=== PATIENT | female | born 1955 | race Caucasian/White ===

== ENCOUNTER → 2016-12-23 | Outpatient (CLI) | payer OTHER ==
--- NOTE | 2016-12-23 11:38 | ECHOS ---
DATE OF SERVICE: 12/23/2016 AGE: 61Y SEX: F HT: 63 WT: ( ) lbs. Protocol Rico: X Others: Stress Echo Stage: II Dur. of Exercise: 3-1/2 minutes *Heart Rate Blood Pressure *Rest: 97 Rest: 144/72 * *Max. Achieved: 151 Maximum BP: 216/55 85% PMHR: 136 100% PMHR: 160 *METS: 4.5 INDICATIONS: Short of breath. MEDICATIONS: Baseline EKG shows sinus rhythm with poor R wave progression. Patient exercised on Rico protocol for a total of 3-1/2 minutes achieving 4.5 METs, 94% of predicted maximal heart rate without chest pain or diagnostic ST segment depression. The test was stopped secondary to shortness of breath. Baseline echo shows normal left ventricular size and systolic function with an ejection fraction of 55%. Anteroseptum appears hypokinetic suggestive of prior myocardial infarction. Postexercise, there is normal hyperdynamic response of all segments of myocardium except the anteroseptum which remains hypokinetic. CONCLUSION: 1. Very poor exercise tolerance. 2. Negative stress test by EKG criteria. 3. Abnormal stress echocardiogram showing hypokinesis involving the anteroseptal wall at rest. There are no exercise-induced wall motion abnormalities.
== END | disposition home or self-care (01) ==
LOC: RADNMMAIN 09:48
PROVIDERS: ATTEND Family Medicine
DX: R94.31 Abnormal electrocardiogram [ECG] [EKG] (principal)
CPT/HCPCS: 93017; 93350

== ENCOUNTER → 2017-01-14 | Outpatient (CLI) | payer OTHER ==
[2017-01-14 17:34] LABS: CH 31.1; CHCM 34.5; HCT 37.4 % (34.0-46.0); HDW 2.69; MCH 31.4 pg (25.0-35.0); MCHC 34.8 g/dL (31.0-37.0); MCV 90.4 fL (80.0-100.0); Mean Platelet Volume 6.7; RBC 4.13 m/uL (3.80-5.40); RDW 12.8 % (11.5-15.5); WBC 13.3 k/uL (3.8-10.6)
[2017-01-14 17:42] LABS: Anion Gap 13 mmol/L; Blood Urea Nitrogen 22 mg/dL (7-17); Carbon Dioxide 28 mmol/L (22-30); Chloride 101 mmol/L (98-107); Non-African American GFR(MDRD) >60 (>60 ml/min/1.73 sqM); Potassium 4.8 mmol/L (3.5-5.1); Sodium 142 mmol/L (137-145)
== END | disposition home or self-care (01) ==
LOC: LABPAT 17:07
PROVIDERS: ATTEND Internal Medicine Cardiovascular Disease
DX: Z01.812 Encounter for preprocedural laboratory examination (principal); R07.9 Chest pain, unspecified
CPT/HCPCS: 80051; 82565; 84520; 85027

== ENCOUNTER 2017-01-20 06:23 | Day surgery (SDC) | payer OTHER ==
[2017-01-15 16:15] VITALS: BMI 36.5
[~2017-01-20 06:23] MED LIST: ALPRAZolam 0.25 MG TAB PO PRN; ASPIRIN 325 MG TAB PO ONE; SODIUM CHLORIDE 0.9% 1,000 ML in EMPTY BAG 1 BAG IV ONE
[2017-01-20 07:08] VITALS: TEMP 97.8
[2017-01-20 07:17] LABS: Glucose,Whole Blood 377 mg/dL (75-99)
[2017-01-20] MEDS ORDERED: INSULIN LISPRO (humaLOG) 300 UNIT/3 ML VIAL SQ ONE ×4 (07:17→13:24)
[2017-01-20] MEDS ORDERED: SODIUM CHLORIDE 0.9% 1,000 ML IV ONE (08:27)
[2017-01-20] MEDS ORDERED: MIDAZOLAM 2 MG/2 ML VIAL IV ONE (08:40)
[2017-01-20] MEDS ORDERED: fentaNYL (PF) 50 MCG/ML 2 ML AMP IV ONE (08:41)
[2017-01-20] MEDS ORDERED: diphenhydrAMINE 50 MG/ML 1 ML VIAL IVP ONE (08:42)
[2017-01-20] MEDS ORDERED: LIDOCAINE 2% INJ 20 MG/ML SQ ONE (08:45)
[2017-01-20] MEDS ORDERED: IOHEXOL 350 MG/ML 100 ML BOTTLE INJ ONE (09:01)
[2017-01-20] MEDS ORDERED: RX INFO: IV CONTRAST WAS GIVEN 1 EACH MISC MISCELLANE PRN (09:06)
--- NOTE | 2017-01-20 09:14 | P.PCN ---
Date of Procedure: 01/20/17 Preoperative Diagnosis: Hypertension hypercholesterolemia and positive stress test Postoperative Diagnosis: Normal coronary arteries and normal LV function Procedure(s) Performed: Left heart catheterization with left ventriculography Description of Procedure: HISTORY: This is a 61-year-old female with history of hypertension and hypercholesterolemia who has been experiencing exertional shortness of breath. A stress echocardiogram was performed which was suggestive of fixed hypokinesis of the anterior wall. Patient was advised to have cardiac catheterization for definitive diagnosis. CONSENT:I have discussed the risks, benefits and alternative therapies for the above-mentioned procedure and for both sedation/analgesia as well as necessary blood product administration, if indicated, as they pertain to this patient. The patient has indicated understanding and acceptance of the risks and procedures discussed. PROCEDURE: Patient was brought to the lab in a fasting state. Patient was given some IV sedation. The right groin is infiltrated with lidocaine and right femoral artery was entered using Seldinger technique. A 6-Kyrgyz catheter was left in place and selective coronary arteriography and left ventriculography was performed. Patient tolerated the procedure well. Femoral angiogram was performed and Angio-Seal was applied for hemostasis. No immediate complications were noted and patient was transferred to [facility] in a stable condition HEMODYNAMICS: The aortic pressure was 150/70. Left ankle end-diastolic pressures of 15-20. SELECTIVE CORONARY ARTERIOGRAPHY: LEFT MAIN: Normal length and patent THE LEFT ANTERIOR DESCENDING CORONARY ARTERY:. Good caliber vessel reaching the apex and gives rise to good-sized diagonal branch. The LAD and the diagonal branch are free of any significant occlusive disease. THE LEFT CIRCUMFLEX AND IS CORONARY ARTERY: This is a moderate caliber vessel giving rise to a tubal segment and small PLV branches. Nondominant in distribution ,free of any occlusive disease. THE RIGHT CORONARY ARTERY:: Dominant vessel giving rise to PDA and PLV. Free of any significant occlusive disease LEFT VENTRICULOGRAPHY:. This was performed with an ejection because the power injection was not functioning. This is suboptimal study but LV function appear to be preserved. FINAL IMPRESSION: Normal coronary arteries. Normal LV function. Mildly elevated end-diastolic pressure. PLAN: Maximum medical therapy and risk factor modification PROGNOSIS: Fair
[2017-01-20] MEDS ORDERED: SODIUM CHLORIDE 0.9% 1,000 ML IV SCH (09:15)
[2017-01-20 09:19] LABS: Glucose,Whole Blood 359 mg/dL (75-99)
[2017-01-20 11:32] VITALS: PULSE 96
[2017-01-20 13:16] VITALS: BP 160/77
[2017-01-20 13:23] LABS: Glucose,Whole Blood 361 mg/dL (75-99)
== END 2017-01-20 14:16 | disposition home or self-care (01) ==
LOC: CATHCVL 06:23
PROVIDERS: ATTEND Internal Medicine Cardiovascular Disease
DX: R94.39 Abnormal result of other cardiovascular function study (principal); R06.00 Dyspnea, unspecified; R06.02 Shortness of breath; I10 Essential (primary) hypertension; E11.9 Type 2 diabetes mellitus without complications; E78.2 Mixed hyperlipidemia; E78.00 Pure hypercholesterolemia, unspecified; J44.9 Chronic obstructive pulmonary disease, unspecified; Z82.49 Family history of ischemic heart disease and other diseases of the circulatory system; Z79.84 Long term (current) use of oral hypoglycemic drugs; Z79.51 Long term (current) use of inhaled steroids; Z79.52 Long term (current) use of systemic steroids; Z79.899 Other long term (current) drug therapy; Z91.09 Other allergy status, other than to drugs and biological substances; Z87.891 Personal history of nicotine dependence
CPT/HCPCS: 93458; C1760; C1894; C1769; J2001; J2250; J1200; Q9967; J3010

== ENCOUNTER → 2017-02-12 | Outpatient (CLI) | payer OTHER | END | disposition home or self-care (01) | LOC: LABWHC1 16:33 | PROVIDERS: ATTEND Orthopaedic Surgery | DX: Z01.812 Encounter for preprocedural laboratory examination (principal) | CPT/HCPCS: 87070 ==

== ENCOUNTER → 2017-03-10 | Outpatient (CLI) | payer OTHER | END | disposition home or self-care (01) | LOC: CPPFTMAIN 13:21 | PROVIDERS: ATTEND Internal Medicine Cardiovascular Disease | DX: R06.02 Shortness of breath (principal) | CPT/HCPCS: 94060; 94726; 94729 ==

== ENCOUNTER 2017-03-30 08:00 | Inpatient (IN) | payer OTHER ==
[2017-03-23 14:38] VITALS: BMI 35.8
--- NOTE | 2017-03-29 20:24 | HP ---
DATE OF ADMISSION: 03/30/2017 Jeanette Weaver is a 61-year-old patient seen with progressive right knee pain. After having treatment options discussed, she elected to proceed with right total knee arthroplasty. Consent regarding the procedure was obtained. Medical clearance was provided by Dr. Rodríguez. Her past medical history is [id number] diabetes, hypertension, hyperlipidemia, osteoarthritis. PAST SURGICAL HISTORY: Cholecystectomy, hysterectomy, right knee arthroscopy, right shoulder arthroscopy. DAILY MEDICATIONS: Gabapentin, losartan, metformin, simvastatin, Symbicort, tramadol. ALLERGIES: IODINE, MEDICAL TAPE. SOCIAL HISTORY: Patient denies tobacco use. PHYSICAL EVALUATION OF THE RIGHT KNEE: Her range of motion is 0 to 120 degrees. There is tenderness along the medial and lateral joint line. She has a positive medial Maykel's. There is a positive lateral Maykel's. Crepitus along the medial and patellofemoral compartments with range of motion. Pain with patellofemoral compression. Ligaments stable. Hip rotation without pain. Distal neurovascular exam intact. Radiographs of the right knee revealed severe medial, moderate patellofemoral compartment osteoarthritis. IMPRESSION: Right knee osteoarthritis. PLAN: Right total knee arthroplasty.
[~2017-03-30 08:00] MED LIST changes: +ACETAMINOPHEN TAB 500 MG TAB PO ONE; -ALPRAZolam 0.25 MG TAB PO PRN; -ASPIRIN 325 MG TAB PO ONE; +DEXAMETHASONE SOD PHOSPHATE 10 MG/ML 1 ML VIAL IV ONE; +MELOXICAM 7.5 MG TAB PO ONE; +MIDAZOLAM 2 MG/2 ML VIAL IV PRN; +ONDANSETRON 4 MG/2 ML VIAL IVP ONE; -SODIUM CHLORIDE 0.9% 1,000 ML in EMPTY BAG 1 BAG IV ONE; +TRANEXAMIC ACID 1,000 MG in SODIUM CHLORIDE 0.9% 100 ML IVPB ONE; +ceFAZolin 2 GM in SODIUM CHLORIDE 0.9% 100 ML IVPB ONE
[2017-03-30 08:44] LABS: Glucose,Whole Blood 158 mg/dL (75-99)
[2017-03-30] MEDS: LACTATED RINGERS 1,000 ML IV SCH ×3 (08:52→23:18)
[2017-03-30] MEDS ORDERED: LIDOCAINE 1% 20 ML VIAL (10MG/ML) FOR IV START INTRADERMA ONE (08:54)
[2017-03-30] MEDS ORDERED: MIDAZOLAM 2 MG/2 ML VIAL IVP ONE ×2 (09:20→10:40)
[2017-03-30] MEDS ORDERED: fentaNYL (PF) 50 MCG/ML 2 ML AMP IVP ONE ×2 (09:20→10:40)
[2017-03-30] MEDS ORDERED: ROPIVACAINE 246.25 MG, EPINEPHrine 0.5 MG, KETOROLAC 30 MG, cloNIDine HCL/PF 80 MCG, WA... MISCELLANE ONE ×5 (09:52)
[2017-03-30] MEDS ORDERED: PROPOFOL 10 MG/ML 20 ML VIAL IV ONE (10:41)
[2017-03-30] MEDS ORDERED: PHENYLEPHRINE-0.9% NACL SYG 1 MG/10 ML SYRINGE ONE (10:41)
[2017-03-30] MEDS ORDERED: LIDOCAINE 1% INJ 10MG/ML (20 ML MDV) ONE (10:41)
[2017-03-30] MEDS ORDERED: ceFAZolin 3,000 MG in SODIUM CHLORIDE 0.9% IRRIGATIO 3,000 ML IRRIGATION ONE (11:25)
[2017-03-30] MEDS ORDERED: hydrOXYzine PAMOATE 25 MG CAP PO PRN (12:41)
[2017-03-30] MEDS ORDERED: NALOXONE 0.4 MG/ML 1 ML VIAL IV PRN (12:41)
[2017-03-30] MEDS ORDERED: ONDANSETRON 4 MG/2 ML VIAL IVP PRN (12:41)
[2017-03-30] MEDS ORDERED: HYDROmorphone 1 MG/ML 1 ML SYRINGE IVP PRN ×3 (12:41)
--- NOTE | 2017-03-30 12:41 | P.OP ---
Date of Procedure: 03/30/17 Preoperative Diagnosis: Right knee osteoarthritis Postoperative Diagnosis: Right knee osteoarthritis Procedure(s) Performed: Right total knee arthroplasty Implants: 1. Radha persona size 8 narrow cruciate retaining cemented femoral component 2. Radha persona size D cemented tibial component 3. Radha persona 10 mm medial congruent polyethylene tibial insert 4. Radha persona 35 mm all polyethylene cemented patella Anesthesia: regional (Adductor canal block), local, spinal Surgeon: Jak Rose Deck Engineer #1: Alfredo Bahena Estimated Blood Loss (ml): 125 Pathology: other (Bone) Condition: stable Disposition: PACU Indications for Procedure: 61-year-old patient seen with symptomatic right knee osteoarthritis. After treatment options were discussed she elected to proceed with right total knee arthroplasty. Operative Findings: See description of procedure Description of Procedure: Patient was taken to the operative suite after having an adductor canal block performed by the department of anesthesia. Patient underwent a spinal anesthetic by the department of anesthesia. Patient was given preoperative IV intake antibiotics and TXA. A well-padded tourniquet was placed about the right lower extremity. The lower extremity was then prepped and draped in the normal sterile orthopedic fashion. A standard anterior incision was made sharply through skin. Dissection was taken down through the subcutaneous soft tissues down to the extensor mechanism. A medial arthrotomy was performed, patella was everted and knee was flexed. There was advanced osteoarthritis noted. A proximal tibial cutting guide was positioned. Proximal tibial cut was made. A distal intramedullary femoral cutting guide was positioned, distal femoral cut made. We placed the appropriate sizing guide and selected the appropriate size. A distal 4-in-1 femoral cutting block was positioned, distal femoral cuts were made. At this point the tourniquet was insufflated to 350. We now placed a trial femoral component into position, along with an appropriate size tibial tray and insert. We now took the knee through range of motion and had full extension good flexion and good overall soft tissue balance noted. The patella was everted and a flush cut made with patellar quad tendon. We templated the patella, appropriate drill holes were made. An appropriate trial patella was positioned, knee was taken through full range of motion with the patella tracking very nicely. The trial patella was removed. Drill holes were made through the femoral component. All trial components were removed after marking off the appropriate rotation of the tibia. Retractors were now positioned along the proximal tibia. An appropriate keel punch was made with the appropriate size tibial guide. At this point appropriate size implants were chosen and opened. The joint was irrigated copiously with pulse lavage mechanical irrigation. Bipolar cautery was utilized on the posterior hip capsule. The posterior hip capsule was infiltrated with local analgesic. We mixed antibiotic methylmethacrylate. Once the methyl methacrylate was ready, the tibial component was cemented into place removing any excess methylmethacrylate. The femoral component was cemented into place removing the removing any excess methylmethacrylate. We then inserted the appropriate size polyethylene tibial insert. We made sure that it was locked into position. We took the knee into full extension, and then back in a flexion making sure we had removed any excess methylmethacrylate. The patellar component was then cemented down and secured with clamp. Excess methylmethacrylate removed. We kept the knee in full extension, patellar clamp in position until methylmethacrylate had hardened. Once it had hardened the patellar clamp was removed. The knee was taken through full range of motion. The patella tracked nicely. There was good soft tissue balancing. The tourniquet was now released. Additional hemostasis was achieved via electrocautery. A second gram of TXA was given. The wound was irrigated with pulse lavage mechanical irrigation. The superficial soft tissues were infiltrated local analgesic. The extensor mechanism was repaired with Vicryl. We checked the repair with range of motion and it was stable. The subcutaneous soft tissues were repaired with Vicryl in layers. The skin was approximated with pernio/Dermabond. Sterile dressings were applied followed by loose web roll and Duane bandage. The patient was transferred to a bed, and taken to recovery in stable and satisfactory condition. Jose BENSON assisted with the procedure.
[2017-03-30] MEDS ORDERED: ROPIVACAINE 1,100 MG, SODIUM CHLORIDE 0.9% 330 ML MISCELLANE PRN ×2 (12:54)
[2017-03-30] MEDS: HYDROmorphone 1 MG/ML 1 ML SYRINGE IVP PRN ×4 (12:56→14:10)
--- NOTE | 2017-03-30 13:14 | P.ONQ ---
Anesthesiology Proc Note - PNB - Peripheral Nerve Block Performed Right Adductor Canal Infusion Time Out Performed: Yes Indication: Acute Post-Operative Pain, Analgesia Sedation Type: Sedate with meaningful contact maintained Preparation: Sterile Prep Position: Supine Catheter Depth at Skin (cm): 6 Catheter: Indwelling Needle Types: Other (see comment) (Matthieu) Needle Size: 100mm (4") Needle Gauge: 18 Technique: Ultrasound Injectate: 0.5% Ropivacaine (see comment for volume) (20) Blood Aspirated: Yes Pain Paresthesia on Injection Noted: No Resistance on Injection: Normal Events: Other (see comment) (Withdrew Cath ~0.5 cm, neg asp blood, Inj rop 3cc with good spread, neg asp blood.)
--- NOTE | 2017-03-30 13:26 | XR ---
EXAMINATION TYPE: XR knee limited RT DATE OF EXAM: 03/30/2017 COMPARISON: NONE TECHNIQUE: Two views submitted HISTORY: Post op FINDINGS: There is a prosthetic knee in near anatomic alignment. There is soft tissue edema and emphysema. Hernandez rgical krista noted. Tubing overlying the femur correlate clinically. IMPRESSION: 1. Postoperative change. Appears in near-anatomic alignment
[2017-03-30 13:53] LABS: Glucose,Whole Blood 202 mg/dL (75-99)
[2017-03-30] MEDS ORDERED: INSULIN LISPRO (humaLOG) 300 UNIT/3 ML VIAL SQ ONE (13:56)
[2017-03-30] MEDS ORDERED: LACTATED RINGERS 1,000 ML IV ONE ×2 (14:11)
[2017-03-30] MEDS: traMADol 50 MG TAB PO SCH ×3 (15:36→21:23)
[2017-03-30 17:04] LABS: Glucose,Whole Blood 249 mg/dL (75-99)
[2017-03-30] MEDS: HYDROcodone/APAP 7.5-325MG 1 EACH TAB PO PRN (17:08)
[2017-03-30] MEDS ORDERED: diphenhydrAMINE 25 MG CAP PO PRN (17:17)
[2017-03-30] MEDS ORDERED: ALBUTEROL NEBULIZED 2.5 MG/3 ML INHALATION PRN (17:17)
[2017-03-30] MEDS: INSULIN LISPRO (humaLOG) 300 UNIT/3 ML VIAL SQ SCH ×2 (18:02→21:25)
[2017-03-30 20:07] LABS: Glucose,Whole Blood 237 mg/dL (75-99)
[2017-03-30] MEDS: ceFAZolin 2 GM in SODIUM CHLORIDE 0.9% 100 ML IVPB SCH (21:21)
[2017-03-30] MEDS: SENNOSIDES-DOCUSATE SODIUM 1 EACH TAB PO SCH (21:23)
[2017-03-30] MEDS: GABAPENTIN 400 MG CAP PO SCH (21:23)
[2017-03-30] MEDS: MONTELUKAST 10 MG TAB PO SCH (21:23)
[2017-03-30] MEDS: PANTOPRAZOLE 40 MG TABLET PO SCH (21:24)
[2017-03-30] MEDS: ATORVASTATIN 20 MG TAB PO SCH (21:24)
[2017-03-30] MEDS ORDERED: TEMAZEPAM 15 MG CAP PO PRN (22:00)
[2017-03-31] MEDS: LACTATED RINGERS 1,000 ML IV SCH ×3 (01:43→19:51)
[2017-03-31] MEDS: ceFAZolin 2 GM in SODIUM CHLORIDE 0.9% 100 ML IVPB SCH (03:06)
[2017-03-31] MEDS: HYDROcodone/APAP 7.5-325MG 1 EACH TAB PO PRN ×3 (03:09→19:58)
[2017-03-31 07:00] LABS: Glucose,Whole Blood 145 mg/dL (75-99)
[2017-03-31 07:29] LABS: Basophils # (A) 0.1 k/uL (0-0.2); Basophils % (A) 0 %; CH 31.3; CHCM 33.8; Eosinophils # (A) 0.1 k/uL (0-0.7); Eosinophils % (A) 0 %; HCT 35.5 % (34.0-46.0); HDW 2.53; Luc # (Auto) 0.29; Luc % (Auto) 2; Lymphocytes # (A) 4.1 k/uL (1.0-4.8); Lymphocytes % (A) 24 %; MCH 31.5 pg (25.0-35.0); MCHC 33.9 g/dL (31.0-37.0); MCV 92.8 fL (80.0-100.0); Mean Platelet Volume 6.7; Monocytes # (A) 0.7 k/uL (0-1.0); Monocytes % (A) 4 %; Neutrophils # (A) 11.8 k/uL (1.3-7.7); Neutrophils % (A) 70 %; RBC 3.83 m/uL (3.80-5.40); RDW 13.2 % (11.5-15.5); WBC 16.9 k/uL (3.8-10.6); WBC (Perox) 17.11
[2017-03-31] MEDS: INSULIN LISPRO (humaLOG) 300 UNIT/3 ML VIAL SQ SCH ×4 (07:43→21:21)
[2017-03-31] MEDS: ENOXAPARIN 30 MG/0.3 ML SYRINGE SQ SCH ×2 (07:44→21:17)
[2017-03-31] MEDS: LINAGLIPTIN 5 MG TABLET PO SCH (07:44)
[2017-03-31] MEDS: GABAPENTIN 400 MG CAP PO SCH ×3 (07:44→21:17)
[2017-03-31] MEDS: LOSARTAN 25 MG TAB PO SCH (07:45)
[2017-03-31] MEDS: MELOXICAM 7.5 MG TAB PO SCH (07:45)
[2017-03-31] MEDS: METOPROLOL SUCCINATE (ER) 25 MG TAB.ER.24H PO SCH (07:46)
[2017-03-31] MEDS: traMADol 50 MG TAB PO SCH ×4 (07:51→23:33)
[2017-03-31] MEDS: SYMBICORT 160-4.5 MCG INHALER INHALATION SCH (07:57)
[2017-03-31 08:34] LABS: Hemoglobin A1C 8.3 % (4.2-6.1)
[2017-03-31] MEDS ORDERED: FAMOTIDINE 20 MG TAB PO SCH (09:00)
--- NOTE | 2017-03-31 10:11 | P.PN ---
Subjective Principal diagnosis: Status post right total knee arthroplasty Patient is seen today resting in her hospital chair, she appears to be in no acute distress. Her pain is controlled at this time. She's ambulated with therapy, urinary catheters been discontinued. She denies any headaches, lightheadedness, chest pain or shortness of breath. Objective - Vital Signs Vital signs: Vital Signs Temp 97.2 F L 03/31/17 07:00 Pulse 92 03/31/17 07:00 Resp 18 03/31/17 07:00 BP 137/84 03/31/17 07:00 Pulse Ox 96 03/31/17 07:00 Intake & Output 03/30/17 03/31/17 03/31/17 18:59 06:59 18:59 Intake Total 1051 800 Output Total 925 1350 Balance 126 -550 Weight 92.533 kg Intake: IV 1051 800 Lactated Ringers 1,000 ml 800 @ 100 mls/hr IV .Q10H LAURA Rx#:[id number] Output: Urine 800 1350 Estimated Blood Loss 125 Other: Voiding Method Indwelling Catheter Indwelling Catheter Indwelling Catheter - Exam Right lower extremity: Incision is clean, dry, and intact. Minimal ecchymosis present on the medial and lateral aspects of the distal incision, krista are in good position. Calf is soft, no tenderness with palpation. Plantar flexion, dorsiflexion, EHL, FHL are intact. Sensory exam to light touch throughout the extremity is intact, dorsal pedis pulses 2+. - Labs CBC & Chem 7: 03/31/17 06:47 Labs: Abnormal Lab Results - Last 24 Hours (Table) 03/30/17 03/30/17 03/30/17 Range/Units 13:52 17:02 20:05 WBC (3.8-10.6) k/uL Neutrophils # (1.3-7.7) k/uL POC Glucose (mg/dL) 202 H 249 H 237 H (75-99) mg/dL Hemoglobin A1c (4.2-6.1) % 03/31/17 03/31/17 03/31/17 Range/Units 06:47 06:47 06:58 WBC 16.9 H (3.8-10.6) k/uL Neutrophils # 11.8 H (1.3-7.7) k/uL POC Glucose (mg/dL) 145 H (75-99) mg/dL Hemoglobin A1c 8.3 H (4.2-6.1) % Assessment and Plan Plan: Assessment: 1. Postop day #1 status post right total knee arthroplasty Plan: 1. Pain control, continue use of oral medication 2. GI and DVT prophylaxis, continue use of Lovenox during inpatient stay, we' ll discharge home on aspirin 325 mg twice a day 3. Encourage incentive spirometer 4. Continue work with physical therapy 5. Daily dressing changes/ice the extremity 6. Medical recommendations 7. Discharge planning: Patient will be likely discharged home either today or tomorrow Time with Patient: Less than 30
--- NOTE | 2017-03-31 10:14 | P.DS ---
Providers Date of admission: 03/30/17 08:00 Expected date of discharge: 04/01/17 Attending physician: Jak Rose Consults: 03/30/17 12:41 Consult Physician Routine Consulting Provider: Suze Paula Consult Reason/Comments: Medical management Do you want consulting provider notified?: Yes Primary care physician: Verna Jason Hospital Course: Date of admission: 03/30/2017 Date of discharge: 04/01/2017 Admission diagnosis: Status post right total knee arthroplasty Discharge diagnosis: Same Attending physician: Dr. Rose Surgical procedures: Right total knee arthroplasty Brief history: Patient is a 7-year-old female with a history of progressive primary right knee osteoarthritis. At this point patient has failed conservative treatment measures and has opted to proceed with a elective right total knee arthroplasty. Hospital course: Details of patient's surgery can be found in operative report. Patient tolerated the procedure well and was subsequently transported to orthopedic floor. Patient's orthopeidc and medical care was provided daily. Patient had daily laboratory tests performed for evaluation of overall blood counts. Patient had daily physical therapy to include strengthening range of motion as well as education with walker ambulation. Patient had daily CPM usage as part of their physical therapy program. Patient was treated with Lovenox for their postoperative DVT prophylaxis during their inpatient stay. Patient was noted to have a relatively uneventful postoperative course. Patient reported satisfactory pain control with oral pain medications by postoperative day 0. Patient showed satisfactory progress with physical therapy. Patient moved steadily through the program and had no difficulty meeting the goals by postoperative day 2. Given patient's otherwise satisfactory course and having met physical therapy goals, plan is to discharge patient home on postoperative day 2. Discharge condition/disposition: Patient will be discharged home in stable condition. Discharge medications: Instructions are given on resumption of patient's normal daily medications per primary care recommendation, in addition patient will be prescribed Kent 7.5 mg/325 mg, Colace 100 mg, aspirin draining 25 mg. Discharge instructions: 1. Wound care and infection precautions, keep incision dry and covered while showering, no lotions, creams, moisturizers. No soaking, tubs, pools, hottubs. Do not scrub over the incision. 2. Weight-bear as tolerated with walker / cane until follow-up. 3. Ice and elevate when necessary. Do not exceed 20 minutes per hour with ice pack. 4. Utilize compression sleeve until seen at first follow up appointment. 5. Visiting nursing care. 6. Home physical therapy [ncluding home CPM. 7. Pain meds and anticoagulants per prescription. 8. Pain medication has potential to cause constipation. Increase oral fluid and fiber intake. Contact primary care provider if you have not had a bowel movement within 48 hours after discharge 9. No anti-inflammatory medication until discussed at first post operative visit, this including Motrin, Aleve, Mobic, Diclofenac. 10. Follow up in office at 2 weeks postop with Jose Bahena PA-C 11. Follow up with your primary care doctor 7-10 days after discharge. 12. Contact [facility] with any questions, . Procedures: Right total knee arthroplasty Patient Condition at Discharge: Good Plan - Discharge Summary New Discharge Prescriptions: New Aspirin 325 mg PO BID #60 tab Docusate [Colace] 100 mg PO DAILY #30 capsule HYDROcodone/APAP 7.5-325MG [Kent 7.5] 1 - 2 each PO Q6HR PRN #60 tab PRN Reason: Pain traMADol HCL [Ultram] 50 mg PO Q6HR PRN #1 tab PRN Reason: Pain Continue Budesonide/Formoterol Fumarate [Symbicort 160-4.5 Mcg Inhaler] 2 puff INHALATION RT-DAILY buPROPion HCL [Wellbutrin XL] 300 mg PO DAILY Simvastatin [Zocor] 40 mg PO HS Montelukast [Singulair] 10 mg PO HS Gabapentin 800 mg PO TID Losartan Potassium [Cozaar] 25 mg PO DAILY Albuterol Inhaler [Ventolin Hfa Inhaler] 1 - 2 puff INHALATION RT-DAILY PRN PRN Reason: Shortness Of Breath Metoprolol Succinate [Toprol XL] 25 mg PO DAILY sitaGLIPtin [Januvia] 100 mg PO DAILY Omeprazole [PriLOSEC] 20 mg PO HS diphenhydrAMINE [Benadryl] 25 mg PO DAILY Discharge Medication List Albuterol Inhaler [Ventolin Hfa Inhaler] 1 - 2 puff INHALATION RT-DAILY PRN 12/25 [History] Budesonide/Formoterol Fumarate [Symbicort 160-4.5 Mcg Inhaler] 2 puff INHALATION RT-DAILY 05/14/16 [History] Gabapentin 800 mg PO TID 05/14/16 [History] Losartan Potassium [Cozaar] 25 mg PO DAILY 05/14/16 [History] Montelukast [Singulair] 10 mg PO HS 05/14/16 [History] Simvastatin [Zocor] 40 mg PO HS 05/14/16 [History] buPROPion HCL [Wellbutrin XL] 300 mg PO DAILY 05/14/16 [History] Metoprolol Succinate [Toprol XL] 25 mg PO DAILY 01/15/17 [History] sitaGLIPtin [Januvia] 100 mg PO DAILY 01/15/17 [History] Omeprazole [PriLOSEC] 20 mg PO HS 01/20/17 [History] diphenhydrAMINE [Benadryl] 25 mg PO DAILY 01/20/17 [History] Aspirin 325 mg PO BID #60 tab 03/31/17 [Rx] Docusate [Colace] 100 mg PO DAILY #30 capsule 03/31/17 [Rx] HYDROcodone/APAP 7.5-325MG [Kent 7.5] 1 - 2 each PO Q6HR PRN #60 tab 03/31/17 [ Rx] traMADol HCL [Ultram] 50 mg PO Q6HR PRN #1 tab 03/31/17 [Rx] Follow up Appointment(s)/Referral(s): Verna Jason DO [Primary Care Provider] - 2 Weeks (Office closed. Patient to call and schedule follow up appointment.) [facility], [NON-STAFF] - 1 Week Alfredo Bahena PAC [PHYSICIAN GRAINING OPERATOR] - 04/15/17 2:10 pm Patient Instructions/Handouts: Knee Replacement (DC) Activity/Diet/Wound Care/Special Instructions: CPM - [facility] to contact you regarding delivery of CPM - [phone] Walker - has at home Orthopedic Discharge Instructions: 1. Wound care and infection precautions, keep incision dry and covered while showering, no lotions, creams, moisturizers. No soaking, pools, hot tubs. Do not scrub over incision. 2. Weight-bear as tolerated with walker / cane until follow-up. 3. Ice and elevate when necessary. Do not exceed 20 minutes per hour with ice pack. 4. Utilize compression sleeve until seen at first follow up appointment. 5. Visiting nursing care. 6. Home physical therapy including home CPM. 7. Pain meds and anticoagulants per prescription. 8. Pain medication has potential to cause constipation. Increase oral fluid and fiber intake. Contact primary care provider if you have not had a bowel movement within 48 hours after discharge. 9. No anti-inflammatory medication until discussed at first post operative visit, this including Motrin, Aleve, Mobic, Diclofenac. 10. Follow up in office at 2 weeks postop with Jose Bahena PA-C 11. Follow up with your primary care doctor 7-10 days after discharge. 12. Contact [facility] with any questions, . Diet: Consistent carb Accu-Cheks before meals and at bedtime, maintain log and take to follow-up visit with PCP for further recommendations Discharge Disposition: HOME WITH HOME HEALTH SERVICES
[2017-03-31] MEDS: buPROPion XL 300 MG TAB.ER.24H PO SCH (10:54)
--- NOTE | 2017-03-31 11:04 | P.PN ---
Progress Note - Text 0652 anesthesia POD 1. Patient is status post right TKR under spinal anesthesia with a right adductor canal catheter placed for postoperative pain relief. With ropivacaine 0.2% running at 10 mL per hour the patient's vas is (3 , 5). Catheter site is intact clean and dry.
[2017-03-31 11:50] LABS: Glucose,Whole Blood 182 mg/dL (75-99)
--- NOTE | 2017-03-31 13:46 | P.CONS ---
History of Present Illness - Reason for Consult Consult date: 03/31/17 Medical management of DM, Asthma, HTN Requesting physician: Jak Rose - Chief Complaint Progressive right knee pain, status post right total knee arthroplasty - History of Present Illness This is a pleasant 61-year-old female admitted with progressive right knee pain , osteoarthritis ,status post right total knee arthroplasty in a patient with history of diabetes mellitus, asthma, hypertension, hyperlipidemia and multiple other medical issues. Continues to do well, ambulating with physical therapy, tolerating increase in exertion well. Pain controlled, passing flatus, no bowel movement. Scant Serosanguineous drainage from incisional site. Afebrile, WBC 16.9, suspect reactive, without signs or symptoms of infection. No fevers, chills, cough. Denies chest pain, palpitations or increased shortness of breath. Blood sugars better controlled. Vital Signs stable. Review of Systems Review of systems: HEENT: Denies headache or focal deficits. Denies any dizziness or lightheadedness. Respiratory: Denies any increased shortness of breath. Cardiac: Denies any chest pain, palpitations. GI: Denies any nausea, vomiting, or diarrhea. Denies any abdominal tenderness. : Denies any dysuria. Psychiatry: Denies any anxiety or depression. Past Medical History Past Medical History: Asthma, Diabetes Mellitus, Fibromyalgia, Hyperlipidemia, Hypertension Additional Past Medical History / Comment(s): hx migraines, varicose veins, IBS, History of Any Multi-Drug Resistant Organisms: None Reported Past Surgical History: Cholecystectomy, Hysterectomy, Orthopedic Surgery Additional Past Surgical History / Comment(s): colonoscopy. rt knee scope x 2 Past Anesthesia/Blood Transfusion Reactions: No Reported Reaction Additional Past Anesthesia/Blood Transfusion Reaction / Comm: "hard to wake up" Past Psychological History: No Psychological Hx Reported Smoking Status: Former smoker Additional Past Alcohol Use History / Comment(s): QUIT SMOKING 40 YRS AGO - Past Family History Mother Family Medical History: No Reported History Medications and Allergies Home Medications Medication Instructions Recorded Confirmed Type Albuterol Inhaler [Ventolin Hfa 1 - 2 puff INHALATION RT-DAILY PRN 05/14/16 History Inhaler] Budesonide/Formoterol Fumarate 2 puff INHALATION RT-DAILY 05/14/16 03/30/17 History [Symbicort 160-4.5 Mcg Inhaler] Gabapentin 800 mg PO TID 05/14/16 03/30/17 History Losartan Potassium [Cozaar] 25 mg PO DAILY 05/14/16 03/30/17 History Montelukast [Singulair] 10 mg PO HS 05/14/16 03/30/17 History Simvastatin [Zocor] 40 mg PO HS 05/14/16 03/30/17 History buPROPion HCL [Wellbutrin XL] 300 mg PO DAILY 05/14/16 03/30/17 History Metoprolol Succinate [Toprol XL] 25 mg PO DAILY 01/15/17 03/30/17 History sitaGLIPtin [Januvia] 100 mg PO DAILY 01/15/17 03/30/17 History Omeprazole [PriLOSEC] 20 mg PO HS 01/20/17 03/30/17 History diphenhydrAMINE [Benadryl] 25 mg PO DAILY 01/20/17 03/30/17 History Allergies Allergy/AdvReac Type Severity Reaction Status Date / Time adhesive tape Allergy skin Verified 03/30/17 14:17 sloughs off iodine Allergy Anaphylaxis Verified 03/30/17 14:17 Physical Exam Vitals: Vital Signs Temp Pulse Pulse Resp BP Pulse Ox 03/31/17 07:00 97.2 F L 92 18 137/84 96 03/31/17 01:39 98.6 F 95 17 125/72 98 03/31/17 00:00 16 03/30/17 20:00 16 03/30/17 19:14 97.6 F 99 16 137/64 94 L 03/30/17 16:40 103 H 160/80 03/30/17 16:25 101 H 152/77 03/30/17 16:10 101 H 154/120 03/30/17 15:55 102 H 162/101 03/30/17 15:40 105 H 181/111 03/30/17 15:25 101 H 161/86 03/30/17 15:10 102 H 151/95 03/30/17 14:55 101 H 153/85 03/30/17 14:40 97.0 F L 99 16 145/89 90 L 03/30/17 14:23 94 18 132/70 97 03/30/17 14:05 95 16 136/67 97 03/30/17 13:50 95 16 128/67 98 03/30/17 13:35 95 16 133/69 98 03/30/17 13:20 96 16 132/68 98 Intake and Output 03/30/17 03/31/17 03/31/17 22:59 06:59 14:59 Intake Total 800 Output Total 1350 1300 Balance -550 -1300 Intake: IV 800 Lactated Ringers 1,000 ml 800 @ 100 mls/hr IV .Q10H [facility] Rx#:[id number] Output: Urine 1350 1300 Uretheral (Zurita) 1000 Other: Voiding Method Indwelling Catheter Indwelling Catheter PHYSICAL EXAM: VITAL SIGNS: As above GENERAL: [Sitting up in a chair, no acute distress] HEENT: [Pupils equal conjunctiva normal. Oral mucosa moist, no conjunctival pallor] NECK: [Supple, no JVD] RESPIRATORY EFFORT:[normal] LUNGS: [Clear to auscultation, no wheezes rhonchi or crackles] CARDIOVASCULAR[ regular S1 and S2, no murmurs rubs or gallops, no edema] GI: [Abdomen soft, nontender, positive bowel sounds.] PSYCH: [Alert and oriented -3, mood and affect normal.] SKIN: Right knee dressing clean dry and intact, dorsal pedis pulses 2+ NEURO: No focal deficits, strength and sensation grossly intact Results CBC & Chem 7: 03/31/17 06:47 Labs: Abnormal Lab Results - Last 24 Hours (Table) 03/30/17 03/30/17 03/30/17 Range/Units 13:52 17:02 20:05 WBC (3.8-10.6) k/uL Neutrophils # (1.3-7.7) k/uL POC Glucose (mg/dL) 202 H 249 H 237 H (75-99) mg/dL Hemoglobin A1c (4.2-6.1) % 03/31/17 03/31/17 03/31/17 Range/Units 06:47 06:47 06:58 WBC 16.9 H (3.8-10.6) k/uL Neutrophils # 11.8 H (1.3-7.7) k/uL POC Glucose (mg/dL) 145 H (75-99) mg/dL Hemoglobin A1c 8.3 H (4.2-6.1) % 03/31/17 Range/Units 11:48 WBC (3.8-10.6) k/uL Neutrophils # (1.3-7.7) k/uL POC Glucose (mg/dL) 182 H (75-99) mg/dL Hemoglobin A1c (4.2-6.1) % Assessment and Plan Plan: 1. [ Right knee osteoarthritis, status post right total knee arthroplasty]. 2. [ Diabetes mellitus, hemoglobin A1c 8.3]. 3. [ Hypertension]. 4. [ Hyperlipidemia]. 5. [ Chronic intermittent Asthma, without acute exacerbation of. 6. Fibromyalgia]. 7. [ Remote history of nicotine abuse 8. Leukocytosis, suspect reactive ,without signs or symptoms of infection. Plan: Continue with current medication regime ,monitoring and symptomatic treatment. Pain management, anticoagulation as per orthopedics. Home meds have been resumed, vital signs stable]. Close monitoring of Accu-Cheks with sliding scale Discharge planning in progress for either today or tomorrow as per orthopedics. Patient to follow-up with primary care physician in one week, with repeat CBC OP. Further recommendations to follow up. Thank you Dr. Rose for allowing us to participate in the care of this pleasant lady. The impression and plan of care has been dictated as directed as a scribe. .: I performed a H&P examination of this patient and discussed the same with the dictator. I agree with the dictator's note. Any additional findings/opinions/ etc. will be noted.
[2017-03-31 16:57] LABS: Glucose,Whole Blood 181 mg/dL (75-99)
[2017-03-31 19:52] VITALS: RESP 16
[2017-03-31 20:15] LABS: Glucose,Whole Blood 272 mg/dL (75-99)
[2017-03-31] MEDS: MONTELUKAST 10 MG TAB PO SCH (21:17)
[2017-03-31] MEDS: PANTOPRAZOLE 40 MG TABLET PO SCH (21:17)
[2017-03-31] MEDS: ATORVASTATIN 20 MG TAB PO SCH (21:17)
[2017-03-31] MEDS: SENNOSIDES-DOCUSATE SODIUM 1 EACH TAB PO SCH (21:19)
[2017-04-01] MEDS: HYDROcodone/APAP 7.5-325MG 1 EACH TAB PO PRN ×2 (04:25→11:25)
[2017-04-01] MEDS: LACTATED RINGERS 1,000 ML IV SCH ×2 (05:46→11:05)
[2017-04-01 07:05] LABS: Glucose,Whole Blood 184 mg/dL (75-99)
[2017-04-01 07:38] VITALS: BP 140/67; TEMP 98.5
[2017-04-01] MEDS: buPROPion XL 300 MG TAB.ER.24H PO SCH (08:08)
[2017-04-01] MEDS: INSULIN LISPRO (humaLOG) 300 UNIT/3 ML VIAL SQ SCH ×2 (08:08→12:55)
[2017-04-01] MEDS: LOSARTAN 25 MG TAB PO SCH (08:09)
[2017-04-01] MEDS: ENOXAPARIN 30 MG/0.3 ML SYRINGE SQ SCH (08:09)
[2017-04-01] MEDS: GABAPENTIN 400 MG CAP PO SCH (08:09)
[2017-04-01] MEDS: LINAGLIPTIN 5 MG TABLET PO SCH (08:09)
[2017-04-01] MEDS: traMADol 50 MG TAB PO SCH ×2 (08:10→12:54)
[2017-04-01] MEDS: MELOXICAM 7.5 MG TAB PO SCH (08:10)
[2017-04-01] MEDS: METOPROLOL SUCCINATE (ER) 25 MG TAB.ER.24H PO SCH (08:10)
[2017-04-01] MEDS: SYMBICORT 160-4.5 MCG INHALER INHALATION SCH (09:22)
[2017-04-01 09:30] VITALS: PULSE 90
--- NOTE | 2017-04-01 10:46 | P.PN ---
Subjective Principal diagnosis: Status post right total knee arthroplasty Patient is seen today resting in her hospital chair, she appears to be in no acute distress. Her pain is controlled at this time. Patient did develop hypotension yesterday before discharge so she decided to stay through the night. She denies any headaches, lightheadedness, chest pain or shortness of breath. Objective - Vital Signs Vital signs: Vital Signs Temp 98.5 F 04/01/17 07:00 Pulse 90 04/01/17 09:22 Resp 16 04/01/17 08:00 BP 140/67 04/01/17 07:00 Pulse Ox 96 04/01/17 07:00 Intake & Output 03/31/17 04/01/17 04/01/17 18:59 06:59 18:59 Intake Total 1080 Output Total 1300 Balance -220 Intake: Oral 1080 Output: Urine 1300 Uretheral (Zurita) 1000 Other: Voiding Method Indwelling Catheter Toilet # Voids 1 # Bowel Movements 1 - Exam Right lower extremity: Incision is clean, dry, and intact. Minimal ecchymosis present on the medial and lateral aspects of the distal incision, krista are in good position. Calf is soft, no tenderness with palpation. Plantar flexion, dorsiflexion, EHL, FHL are intact. Sensory exam to light touch throughout the extremity is intact, dorsal pedis pulses 2+. - Labs CBC & Chem 7: 03/31/17 06:47 Labs: Abnormal Lab Results - Last 24 Hours (Table) 03/31/17 03/31/17 03/31/17 Range/Units 11:48 16:56 20:08 POC Glucose (mg/dL) 182 H 181 H 272 H (75-99) mg/dL 04/01/17 Range/Units 06:56 POC Glucose (mg/dL) 184 H (75-99) mg/dL Assessment and Plan Plan: Assessment: 1. Postop day #2 status post right total knee arthroplasty Plan: 1. Pain control, continue use of oral medication 2. GI and DVT prophylaxis, continue use of Lovenox during inpatient stay, we' ll discharge home on aspirin 325 mg twice a day 3. Encourage incentive spirometer 4. Continue work with physical therapy 5. Daily dressing changes/ice the extremity 6. Medical recommendations 7. Discharge planning: Patient will be discharged home today Time with Patient: Less than 30
[2017-04-01 11:14] LABS: Glucose,Whole Blood 188 mg/dL (75-99)
--- NOTE | 2017-04-01 15:48 | P.PN ---
Subjective Service 04/01/2017 Progress note being dictated for Dr. Guillen. Interval history: This is a pleasant 61-year-old female admitted with progressive right knee pain , osteoarthritis ,status post right total knee arthroplasty in a patient with history of diabetes mellitus, asthma, hypertension, hyperlipidemia and multiple other medical issues. Yesterday afternoon patient had isolated event of lightheadedness, hypotension while ambulating; returned to bed, symptoms as well as hypotension subsided. No further episodes of hypotension, or lightheadedness;ambulating and doing stairs with physical therapy, tolerating increase in exertion well. Pain controlled, positive bowel movement. No drainage from incisional site. Afebrile, No fevers, chills, cough. Denies chest pain, palpitations or increased shortness of breath. Vital Signs stable. Objective - Vital Signs Vital signs: Vital Signs Temp 98.5 F 04/01/17 07:00 Pulse 90 04/01/17 09:22 Resp 16 04/01/17 08:00 BP 140/67 04/01/17 07:00 Pulse Ox 96 04/01/17 07:00 Intake & Output 03/31/17 04/01/17 04/01/17 18:59 06:59 18:59 Intake Total 1080 Output Total 1300 Balance -220 Intake: Oral 1080 Output: Urine 1300 Uretheral (Zurita) 1000 Other: Voiding Method Indwelling Catheter Toilet # Voids 1 # Bowel Movements 1 - Exam VITAL SIGNS: As above GENERAL: [Sitting up in a chair no acute distress] HEENT: [Pupils equal conjunctiva normal. Oral mucosa moist, no conjunctival pallor] NECK: [Supple, no JVD] RESPIRATORY EFFORT:[normal] LUNGS: [Clear to auscultation, no wheezes rhonchi or crackles] CARDIOVASCULAR[ regular S1 and S2, no murmurs rubs or gallops, no edema] GI: [Abdomen soft, nontender, positive bowel sounds.] PSYCH: [Alert and oriented -3, mood and affect normal. NEURO: No focal deficits, strength and sensation grossly intact - Labs CBC & Chem 7: 03/31/17 06:47 Labs: Abnormal Lab Results - Last 24 Hours (Table) 03/31/17 03/31/17 04/01/17 Range/Units 16:56 20:08 06:56 POC Glucose (mg/dL) 181 H 272 H 184 H (75-99) mg/dL 04/01/17 Range/Units 11:12 POC Glucose (mg/dL) 188 H (75-99) mg/dL Assessment and Plan Plan: 1. [ Right knee osteoarthritis, status post right total knee arthroplasty]. 2. [ Diabetes mellitus, hemoglobin A1c 8.3]. 3. [ Hypertension]. 4. [ Hyperlipidemia]. 5. [ Chronic intermittent Asthma, without acute exacerbation of. 6. Fibromyalgia]. 7. [ Remote history of nicotine abuse 8. Leukocytosis, suspect reactive ,without signs or symptoms of infection. Plan: Continue with current medication regime ,monitoring and symptomatic treatment. Pain management, anticoagulation as per orthopedics. Discharge planning in progress as per orthopedics. Close monitoring of Accu-Cheks with Outpatient Accu-Cheks before meals and at bedtime, Patient to follow-up with primary care physician in one week, with repeat CBC OP. Further recommendations to follow up. Thank you Dr. Rose for allowing us to participate in the care of this pleasant lady. The impression and plan of care has been dictated as directed as a scribe. : I performed a H&P examination of this patient and discussed the same with the dictator. I agree with the dictator's note. Any additional findings/opinions/ etc. will be noted.
== END 2017-04-01 13:44 | disposition home health service (06) | DRG 470 ==
LOC: 2ORMAIN 08:00 → 3SUR 12:50
PROVIDERS: ADMIT Orthopaedic Surgery; ATTEND Orthopaedic Surgery
PROC: 0SRC0J9 Replacement of Right Knee Joint with Synthetic Substitute, Cemented, Open Approach (ICD-10-PCS; principal; 2017-03-30 10:20)
DX: M17.11 Unilateral primary osteoarthritis, right knee (principal); I95.9 Hypotension, unspecified; I10 Essential (primary) hypertension; E78.5 Hyperlipidemia, unspecified; J45.20 Mild intermittent asthma, uncomplicated; E11.9 Type 2 diabetes mellitus without complications; M79.7 Fibromyalgia; K58.9 Irritable bowel syndrome, unspecified; I83.90 Asymptomatic varicose veins of unspecified lower extremity; G43.909 Migraine, unspecified, not intractable, without status migrainosus; Z90.49 Acquired absence of other specified parts of digestive tract; Z90.710 Acquired absence of both cervix and uterus; Z87.891 Personal history of nicotine dependence; Z79.51 Long term (current) use of inhaled steroids; Z79.84 Long term (current) use of oral hypoglycemic drugs; Z79.899 Other long term (current) drug therapy; Z88.8 Allergy status to other drugs, medicaments and biological substances; Z91.048 Other nonmedicinal substance allergy status
CPT/HCPCS: 83036; 85025; 88300; 94640

== ENCOUNTER → 2017-11-25 | Outpatient (CLI) | payer OTHER ==
--- NOTE | 2017-11-26 12:59 | MM ---
Reason for exam: screening (asymptomatic). Last mammogram was performed 1 year and 5 months ago. History: Patient is postmenopausal. Physical Findings: A clinical breast exam by your physician is recommended on an annual basis and results should be correlated with mammographic findings. MG Screening Mammo w CAD Bilateral CC and MLO view(s) were taken. Prior study comparison: July 01, 2016, bilateral MG 3d screening mammo w/cad. September 29, 2012, bilateral digital screening mammo w/CAD. The breast tissue is heterogeneously dense. This may lower the sensitivity of mammography. Stable benign calcifications. Post biopsy changes in the left breast. No significant changes when compared with prior studies. ASSESSMENT: Benign, BI-RAD 2 RECOMMENDATION: Routine screening mammogram of both breasts in 1 year.
== END ==
LOC: RADMAMWWP 11:19
PROVIDERS: ATTEND Family Medicine
DX: Z12.31 Encounter for screening mammogram for malignant neoplasm of breast (principal)
CPT/HCPCS: 77067

== ENCOUNTER → 2018-01-11 | Outpatient (CLI) | payer OTHER | END | disposition home or self-care (01) | LOC: LABPAT 10:04 | PROVIDERS: ATTEND Orthopaedic Surgery | DX: Z01.812 Encounter for preprocedural laboratory examination (principal) | CPT/HCPCS: 87070 ==

== ENCOUNTER 2018-01-25 08:07 | Inpatient (IN) | payer OTHER ==
[2018-01-13 16:10] VITALS: BMI 35.0
--- NOTE | 2018-01-24 10:33 | HP ---
HISTORY AND PHYSICAL HISTORY: Jeanette Weaver is a 62-year-old patient seen with progressive left knee pain. We discussed treatment options. She elected to proceed with her total knee arthroplasty. Consent regarding the procedure was obtained, clearance was provided by Dr. Jason. PAST MEDICAL HISTORY: [id number] diabetes, hyperlipidemia, hypertension. PAST SURGICAL HISTORY: Cholecystectomy, hysterectomy, knee arthroscopy, shoulder arthroscopy. MEDICATIONS: Gabapentin, losartan, metformin, simvastatin, Symbicort, tramadol, Januvia. ALLERGIES: Iodine, medical tape. SOCIAL HISTORY: Patient denies current tobacco use. PHYSICAL EXAMINATION: Evaluation of left knee, range of motion is 0 to 125 degrees. Tenderness along the medial and lateral joint lines. Crepitus along the medial lateral and patellofemoral compartments with range of motion. Pain with patellofemoral compression. Ligaments stable. Hip rotation without pain. Distal neurovascular exam intact. RADIOGRAPHS: Left knee radiographs reveal severe tricompartmental osteoarthritis. IMPRESSION: 1. Left knee osteoarthritis. 2. Hypertension. 3. Hyperlipidemia. 4. [id number] diabetes. PLAN: Left total knee arthroplasty. MMODL / IJN: [id number] /
[~2018-01-25 08:07] MED LIST changes: -DEXAMETHASONE SOD PHOSPHATE 10 MG/ML 1 ML VIAL IV ONE; +LACTATED RINGERS 1,000 ML IV SCH; +LIDOCAINE 1% 20 ML VIAL (10MG/ML) FOR IV START INTRADERMA PRN; -TRANEXAMIC ACID 1,000 MG in SODIUM CHLORIDE 0.9% 100 ML IVPB ONE; +TRANEXAMIC ACID 1,000 MG in SODIUM CHLORIDE 0.9% 50 ML IVPB ONE; -ceFAZolin 2 GM in SODIUM CHLORIDE 0.9% 100 ML IVPB ONE; +ceFAZolin IN SWFI 2 GM/20 ML SYRINGE IVP ONE; +fentaNYL (PF) 50 MCG/ML 20 ML VIAL IVP PRN
[2018-01-25] MEDS ORDERED: LIDOCAINE 1% 20 ML VIAL (10MG/ML) FOR IV START INTRADERMA ONE (08:46)
[2018-01-25 09:29] LABS: Glucose,Whole Blood 147 mg/dL (75-99)
[2018-01-25] MEDS ORDERED: PROPOFOL 10 MG/ML 20 ML VIAL IV ONE (10:13)
[2018-01-25] MEDS ORDERED: fentaNYL (PF) 50 MCG/ML 2 ML AMP ONE (10:13)
[2018-01-25] MEDS ORDERED: MIDAZOLAM 2 MG/2 ML VIAL ONE (10:13)
[2018-01-25] MEDS ORDERED: ceFAZolin 3,000 MG in SODIUM CHLORIDE 0.9% IRRIGATIO 3,000 ML IRRIGATION ONE (10:30)
[2018-01-25] MEDS: ROPIVACAINE 246.25 MG, EPINEPHrine 0.5 MG, KETOROLAC 30 MG, cloNIDine HCL/PF 80 MCG, WA... MISCELLANE ONE ×10 (10:35→10:53)
[2018-01-25] MEDS ORDERED: ROPIVACAINE 1,100 MG, SODIUM CHLORIDE 0.9% 330 ML MISCELLANE PRN ×2 (12:17)
--- NOTE | 2018-01-25 12:22 | P.OP ---
Date of Procedure: 01/25/18 Preoperative Diagnosis: Left knee osteoarthritis Postoperative Diagnosis: Left knee osteoarthritis Procedure(s) Performed: Left total knee arthroplasty Implants: 1. Radha persona size 7 narrow left cruciate retaining cemented femur 2. Radha persona size E left cemented tibial tray 3. Radha persona 10 mm medial congruent polyethylene tibial insert 4. Radha persona 32 mm all polyethylene cemented patella Anesthesia: regional (Adductor canal catheter), local, spinal Surgeon: Jak Rose Turning Sander Tender #1: Alfredo Bahena Estimated Blood Loss (ml): 60 Pathology: other (Bone) Condition: stable Disposition: PACU Indications for Procedure: 62-year-old patient seen with symptomatic left knee osteoarthritis. After treatment options were discussed, she elected to proceed with total knee arthroplasty Operative Findings: see description of procedure Description of Procedure: Patient was taken to the operative suite after having an adductor canal catheter placed by the department of anesthesia. Patient underwent a spinal anesthetic by the department of anesthesia. Patient was given preoperative IV intake antibiotics and TXA. A well-padded tourniquet was placed about the left lower extremity. The lower extremity was then prepped and draped in the normal sterile orthopedic fashion. The extremity was elevated, a tourniquet was insufflated to 300. A standard anterior incision was made sharply through skin. Dissection was taken down through the subcutaneous soft tissues down to the extensor mechanism. A medial arthrotomy was performed, patella was everted and knee was flexed. There was advanced osteoarthritis noted. A proximal tibial cutting guide was positioned. Proximal tibial cut was made. A distal intramedullary femoral cutting guide was positioned, distal femoral cut made. We placed the appropriate sizing guide and selected the appropriate size. A distal 4-in-1 femoral cutting block was positioned, distal femoral cuts were made. We now placed a trial femoral component into position, along with an appropriate size tibial tray and insert. We now took the knee through range of motion and had full extension good flexion and good overall soft tissue balance noted. The patella was everted and a flush cut made with patellar quad tendon. We templated the patella, appropriate drill holes were made. An appropriate trial patella was positioned, knee was taken through full range of motion with the patella tracking very nicely. The trial patella was removed. Drill holes were made through the femoral component. All trial components were removed after marking off the appropriate rotation of the tibia. Retractors were now positioned along the proximal tibia. An appropriate keel punch was made with the appropriate size tibial guide. At this point appropriate size implants were chosen and opened. The joint was irrigated copiously with pulse lavage mechanical irrigation. The deep soft tissues were infiltrated with local analgesic. We mixed antibiotic methylmethacrylate. Once the methyl methacrylate was ready, the tibial component was cemented into place removing any excess methylmethacrylate. The femoral component was cemented into place removing the removing any excess methylmethacrylate. We then inserted the appropriate size polyethylene tibial insert. We made sure that it was locked into position. We took the knee into full extension, and then back in a flexion making sure we had removed any excess methylmethacrylate. The patellar component was then cemented down and secured with clamp. Excess methylmethacrylate removed. We kept the knee in full extension, patellar clamp in position until methylmethacrylate had hardened. Once it had hardened the patellar clamp was removed. The knee was taken through full range of motion. The patella tracked nicely. There was good soft tissue balancing. The tourniquet was now released. Additional hemostasis was achieved via electrocautery. The wound was irrigated with pulse lavage mechanical irrigation. The superficial soft tissues were infiltrated local analgesic. The extensor mechanism was repaired with Vicryl. We checked the repair with range of motion and it was stable. The subcutaneous soft tissues were repaired with Vicryl in layers. The skin was approximated with skin krista. Sterile dressings were applied followed by loose web roll and Duane bandage. The patient was transferred to a bed, and taken to recovery in stable and satisfactory condition. Jose BENSON assisted with the procedure.
[2018-01-25] MEDS ORDERED: ONDANSETRON 4 MG/2 ML VIAL IVP PRN (12:23)
[2018-01-25] MEDS ORDERED: HYDROcodone/APAP 7.5-325MG 1 EACH TAB PO PRN (12:23)
[2018-01-25] MEDS ORDERED: MORPHINE SULFATE 4MG/4ML SYRG IVP PRN ×3 (12:23)
[2018-01-25] MEDS ORDERED: NALOXONE 0.4 MG/ML 1 ML VIAL IV PRN (12:23)
[2018-01-25 12:47] LABS: Glucose,Whole Blood 124 mg/dL (75-99)
--- NOTE | 2018-01-25 12:53 | XR ---
EXAMINATION TYPE: XR knee limited LT DATE OF EXAM: 01/25/2018 CLINICAL HISTORY: Left knee pain and arthritis status post total knee replacement. TECHNIQUE: Portable AP and crosstable lateral views of the left knee are obtained immediately postop eratively. COMPARISON: None FINDINGS: Metallic hardware from total left knee arthroplasty is seen and appears satisfactory in al ignment and position. There is evidence of recent surgery with diffuse subcutaneous gas and soft tis suleman swelling with overlying vertical skin krista also noted. IMPRESSION: METALLIC HARDWARE FROM TOTAL LEFT KNEE ARTHROPLASTY IS SATISFACTORY IN ALIGNMENT.
[2018-01-25] MEDS ORDERED: ALBUTEROL NEBULIZED 2.5 MG/3 ML INHALATION PRN (13:58)
[2018-01-25] MEDS: traMADol 50 MG TAB PO SCH ×3 (14:20→21:15)
[2018-01-25] MEDS: LACTATED RINGERS 1,000 ML IV SCH (14:21)
--- NOTE | 2018-01-25 14:53 | P.CONS ---
History of Present Illness - Reason for Consult Recommend regarding diuretic medications - History of Present Illness 62-year-old pleasant female is admitted for the elective left knee arthroplasty successfully underwent surgery patient did not pass gas yet patient is postoperative day 0 patient doesn't have a surgical drain placed patient denied any significant pain patient denied any fever chills dysuria patient doesn't have any full At this point of time. Review of Systems REVIEW OF SYSTEMS: CONSTITUTIONAL: No fever, no malaise, no fatigue. HEENT: No recent visual problems or hearing problems. Denied any sore throat. CARDIOVASCULAR: No chest pain, orthopnea, PND, no palpitations, no syncope. PULMONARY: No shortness of breath, no cough, no hemoptysis. GASTROINTESTINAL: No diarrhea, no nausea, no vomiting, no abdominal pain. Normoactive bowel sounds. NEUROLOGICAL: No headaches, no weakness, no numbness. HEMATOLOGICAL: Denies any bleeding or petechiae. GENITOURINARY: Denies any burning micturition, frequency, or urgency. MUSCULOSKELETAL/RHEUMATOLOGICAL: Denies any joint pain, swelling, or any muscle pain. ENDOCRINE: Denies any polyuria or polydipsia. The rest of the 14-point review of systems is negative. Past Medical History Past Medical History: Asthma, Diabetes Mellitus, Fibromyalgia, Hyperlipidemia, Hypertension Additional Past Medical History / Comment(s): hx migraines, varicose veins, IBS, History of Any Multi-Drug Resistant Organisms: None Reported Past Surgical History: Cholecystectomy, Hysterectomy, Joint Replacement, Orthopedic Surgery Additional Past Surgical History / Comment(s): colonoscopy; R knee scope; R knee Replacement Past Anesthesia/Blood Transfusion Reactions: No Reported Reaction Additional Past Anesthesia/Blood Transfusion Reaction / Comm: "hard to wake up" Past Psychological History: Depression Smoking Status: Former smoker Past Alcohol Use History: Occasional Additional Past Alcohol Use History / Comment(s): smoked briefly as teen Past Drug Use History: None Reported - Past Family History Mother Family Medical History: Congestive Heart Failure (CHF), Diabetes Mellitus Father Additional Family Medical History / Comment(s): parkinsons Medications and Allergies Home Medications Medication Instructions Recorded Confirmed Type Albuterol Inhaler [Ventolin Hfa 1 - 2 puff INHALATION RT-DAILY PRN 05/14/16 History Inhaler] Budesonide/Formoterol Fumarate 2 puff INHALATION RT-DAILY 05/14/16 01/25/18 History [Symbicort 160-4.5 Mcg Inhaler] Gabapentin 800 mg PO TID 05/14/16 01/25/18 History Losartan Potassium [Cozaar] 25 mg PO DAILY 05/14/16 01/25/18 History Montelukast [Singulair] 10 mg PO HS 05/14/16 01/25/18 History Simvastatin [Zocor] 40 mg PO HS 05/14/16 01/25/18 History buPROPion HCL [Wellbutrin XL] 300 mg PO DAILY 05/14/16 01/25/18 History Metoprolol Succinate [Toprol XL] 25 mg PO DAILY 01/15/17 01/25/18 History sitaGLIPtin [Januvia] 100 mg PO DAILY 01/15/17 01/25/18 History diphenhydrAMINE [Benadryl] 25 mg PO DAILY 01/20/17 01/25/18 History Aspirin 325 mg PO BID #60 tab 03/31/17 01/25/18 Rx traMADol HCL [Ultram] 50 mg PO Q6HR PRN #1 tab 03/31/17 01/25/18 Rx Meloxicam [Mobic] 7.5 mg PO DAILY 01/13/18 01/25/18 History Omeprazole Magnesium [PriLOSEC OTC] 20 mg PO DAILY 01/13/18 01/25/18 History metFORMIN HCL [Glucophage] 1,000 mg PO BID 01/13/18 01/25/18 History Allergies Allergy/AdvReac Type Severity Reaction Status Date / Time adhesive tape Allergy skin Verified 01/25/18 14:15 sloughs off iodine Allergy Anaphylaxis Verified 01/25/18 14:15 Physical Exam Vitals: Vital Signs Temp Pulse Pulse Resp BP BP Pulse Ox 01/25/18 13:10 82 16 132/73 96 01/25/18 12:55 81 16 140/72 92 L 01/25/18 12:40 77 16 135/73 100 01/25/18 12:27 97 F L 82 16 170/79 01/25/18 09:54 89 18 161/80 99 01/25/18 08:33 98.1 F 83 18 161/80 98 Intake and Output 01/24/18 01/25/18 01/25/18 22:59 06:59 14:59 Intake Total 851 Output Total 60 Balance 791 Intake: IV 851 Output: Estimated Blood Loss 60 Other: Weight 89.811 kg PHYSICAL EXAMINATION: GENERAL: The patient is alert and oriented x3, not in any acute distress. Well developed, well nourished. HEENT: Pupils are round and equally reacting to light. EOMI. No scleral icterus. No conjunctival pallor. Normocephalic, atraumatic. No pharyngeal erythema. No thyromegaly. CARDIOVASCULAR: S1 and S2 present. No murmurs, rubs, or gallops. PULMONARY: Chest is clear to auscultation, no wheezing or crackles. ABDOMEN: Soft, nontender, nondistended, normoactive bowel sounds. No palpable organomegaly. MUSCULOSKELETAL: Deferred to orthopedic surgery EXTREMITIES: No cyanosis, clubbing, or pedal edema. NEUROLOGICAL: Gross neurological examination did not reveal any focal deficits. SKIN: No rashes. Results Labs: Abnormal Lab Results - Last 24 Hours (Table) 01/25/18 01/25/18 Range/Units 08:53 12:45 POC Glucose (mg/dL) 147 H 124 H (75-99) mg/dL Assessment and Plan Plan: -Diabetes mellitus: Since patient is eating normally patient will be started on oral regimen along with sliding scale insulin. -Hyperlipidemia -Asthma without any acute examination patient will be started on inhalational steroids Fibromyalgia -Hypertension Hyperlipidemia arthroplasty: Pain management and due to prophylaxis per primary service For above-mentioned chronic medical problems patient will be resumed on appropriate home medications admission medications reconciliation was reviewed and ordered.
[2018-01-25] MEDS: hydrOXYzine PAMOATE 25 MG CAP PO PRN ×2 (15:50→21:17)
[2018-01-25] MEDS: HYDROcodone/APAP 7.5-325MG 1 EACH TAB PO PRN (15:50)
[2018-01-25 17:15] LABS: Glucose,Whole Blood 133 mg/dL (75-99)
[2018-01-25] MEDS: INSULIN ASPART 100 UNIT/ML 1 ML 10 ML VIAL SQ SCH ×2 (18:38→21:17)
[2018-01-25] MEDS: GABAPENTIN 400 MG CAP PO SCH ×2 (18:42→21:18)
[2018-01-25] MEDS: metFORMIN 500 MG TAB PO SCH (18:42)
[2018-01-25 20:21] LABS: Glucose,Whole Blood 211 mg/dL (75-99)
[2018-01-25 20:51] VITALS: RESP 16
[2018-01-25] MEDS: SENNOSIDES-DOCUSATE SODIUM 1 EACH TAB PO SCH (21:16)
[2018-01-25] MEDS: ENOXAPARIN 30 MG/0.3 ML SYRINGE SQ SCH (21:17)
[2018-01-25] MEDS: ATORVASTATIN 20 MG TAB PO SCH (21:18)
[2018-01-25] MEDS: ceFAZolin IN SWFI 2 GM/20 ML SYRINGE IVP SCH (21:18)
[2018-01-25] MEDS: ASPIRIN 325 MG TAB PO SCH (21:18)
[2018-01-26] MEDS: LACTATED RINGERS 1,000 ML IV SCH ×2 (00:07→12:33)
[2018-01-26] MEDS: HYDROcodone/APAP 7.5-325MG 1 EACH TAB PO PRN ×4 (00:31→19:11)
[2018-01-26] MEDS: ceFAZolin IN SWFI 2 GM/20 ML SYRINGE IVP SCH (04:27)
--- NOTE | 2018-01-26 05:19 | P.PN ---
Progress Note - Text Progress Note Date: 01/26/18 Postoperative day # 1 status post left total knee arthroplasty, under spinal anesthesia, and adductor canal catheter placed for postoperative analgesia. Currently on ropivacaine 0.2% 8 mL per hour and continuous infusion, catheter site local. There is no erythema, and there is no tenderness at site of catheter insertion VAS: 5/10 Breakthrough Meds: See EMR Complications: None . Assessment and Plan: Acute postoperative pain, adductor canal catheter for pain control, pain is well controlled willll continue the same management. promote early ambulation
[2018-01-26 07:08] LABS: Glucose,Whole Blood 136 mg/dL (75-99)
[2018-01-26 07:35] LABS: Basophils # (A) 0.1 k/uL (0-0.2); Basophils % (A) 1 %; Eosinophils # (A) 0.1 k/uL (0-0.7); Eosinophils % (A) 1 %; HCT 35.5 % (34.0-46.0); HGB 11.7 gm/dL (11.4-16.0); Lymphocytes # (A) 1.4 k/uL (1.0-4.8); Lymphocytes % (A) 16 %; MCH 30.1 pg (25.0-35.0); MCV 91.2 fL (80.0-100.0); Mean Platelet Volume 7.1; Monocytes # (A) 0.4 k/uL (0-1.0); Monocytes % (A) 5 %; Neutrophils # (A) 6.7 k/uL (1.3-7.7); Neutrophils % (A) 76 %; Platelet Count 258 k/uL (150-450); RBC 3.89 m/uL (3.80-5.40); RDW 12.4 % (11.5-15.5); WBC 8.8 k/uL (3.8-10.6)
[2018-01-26] MEDS ORDERED: HYDROmorphone 4 MG TABLET PO PRN (09:09)
[2018-01-26] MEDS ORDERED: HYDROmorphone 2 MG TAB PO PRN ×2 (09:09)
[2018-01-26] MEDS: LINAGLIPTIN 5 MG TABLET PO SCH (09:15)
[2018-01-26] MEDS: buPROPion XL 300 MG TAB.ER.24H PO SCH (09:15)
[2018-01-26] MEDS: MELOXICAM 7.5 MG TAB PO SCH (09:15)
[2018-01-26] MEDS: ASPIRIN 325 MG TAB PO SCH (09:15)
[2018-01-26] MEDS: METOPROLOL SUCCINATE (ER) 25 MG TAB.ER.24H PO SCH (09:16)
[2018-01-26] MEDS: metFORMIN 500 MG TAB PO SCH ×2 (09:16→18:14)
[2018-01-26] MEDS: GABAPENTIN 400 MG CAP PO SCH ×2 (09:16→16:41)
[2018-01-26] MEDS: ENOXAPARIN 30 MG/0.3 ML SYRINGE SQ SCH (09:16)
[2018-01-26] MEDS: INSULIN ASPART 100 UNIT/ML 1 ML 10 ML VIAL SQ SCH ×3 (09:16→18:14)
[2018-01-26] MEDS: FAMOTIDINE 20 MG TAB PO SCH (09:24)
[2018-01-26] MEDS: traMADol 50 MG TAB PO SCH ×3 (09:24→18:14)
[2018-01-26] MEDS: SYMBICORT 160-4.5 MCG INHALER INHALATION SCH (10:20)
--- NOTE | 2018-01-26 11:24 | P.ONQ ---
Anesthesiology Proc Note - PNB - Peripheral Nerve Block Performed Left Adductor Canal Infusion Time Out Performed: Yes Procedure Start Time: : Procedure Stop Time: :40 Indication: Acute Post-Operative Pain, Requested by physician Sedation Type: Sedate with meaningful contact maintained Preparation: Sterile Dressing Position: Supine Catheter: Indwelling Needle Types: On-Q Needle Size: 100mm (4") Needle Gauge: 21 Technique: Ultrasound Injectate: 0.5% Ropivacaine (see comment for volume) (ropi .5% 20cc) Blood Aspirated: No Pain Paresthesia on Injection Noted: No Resistance on Injection: Normal Events: Uneventful and Well Tolerated
[2018-01-26 11:47] LABS: Glucose,Whole Blood 138 mg/dL (75-99)
[2018-01-26] MEDS: hydrOXYzine PAMOATE 25 MG CAP PO PRN (12:39)
--- NOTE | 2018-01-26 13:12 | P.PN ---
Subjective Progress Note Date: 01/26/18 Principal diagnosis: Status post left total knee arthroplasty Patient is seen today resting in her hospital bed, she appears comfortable. She notes some discomfort in the knee. She's ambulated well at this time with therapy. She denies any headaches, lightheadedness, chest pain or shortness of breath. Objective - Vital Signs Vital signs: Vital Signs Temp 98.7 F 01/26/18 09:12 Pulse 88 01/26/18 09:12 Resp 16 01/26/18 09:12 BP 124/59 01/26/18 09:12 Pulse Ox 96 01/26/18 09:12 Intake & Output 01/25/18 01/26/18 01/26/18 18:59 06:59 18:59 Intake Total 851 Output Total 60 Balance 791 Weight 89.811 kg Intake: IV 851 Output: Estimated Blood Loss 60 Other: Voiding Method Toilet # Voids 1 - Exam Left lower extremity: Incision is clean, dry, and intact. [place] are all in good position. There is minimal soft tissue swelling and ecchymosis surrounding the medial and lateral aspects of the incision. Calf is soft, no tenderness with palpation. Plantar flexion, dorsiflexion, EHL, FHL are intact. Sensory exam to light touch throughout the extremity is intact, dorsal pedis pulses 2+. - Labs CBC & Chem 7: 01/26/18 06:59 Labs: Abnormal Lab Results - Last 24 Hours (Table) 01/25/18 01/25/18 01/26/18 Range/Units 17:14 20:18 07:03 POC Glucose (mg/dL) 133 H 211 H 136 H (75-99) mg/dL 01/26/18 Range/Units 11:40 POC Glucose (mg/dL) 138 H (75-99) mg/dL Assessment and Plan Plan: Assessment: 1. Postop day #1 status post left total knee arthroplasty Plan: Pain control, continue use of oral medication GI and DVT prophylaxis, continue subcu medication during inpatient stay Wound care instructions were discussed, including icing and elevating techniques Daily dressing changes Medical recommendations Discharge planning: Plan for the patient to be discharged home tomorrow Time with Patient: Less than 30
[2018-01-26 16:52] LABS: Glucose,Whole Blood 149 mg/dL (75-99)
[2018-01-26 20:21] LABS: Glucose,Whole Blood 193 mg/dL (75-99)
[2018-01-26 20:33] LABS: Hemoglobin A1C 7.7 % (4.0-6.0)
[2018-01-26] MEDS ORDERED: INSULIN ASPART 100 UNIT/ML 1 ML 10 ML VIAL SQ ONE (23:00)
[2018-01-26] MEDS ORDERED: ASPIRIN 325 MG TAB ONE (23:00)
[2018-01-26] MEDS ORDERED: ENOXAPARIN 30 MG/0.3 ML SYRINGE SQ ONE (23:00)
[2018-01-26] MEDS ORDERED: GABAPENTIN 400 MG CAP ONE (23:00)
[2018-01-26] MEDS ORDERED: traMADol 50 MG TAB ONE (23:00)
[2018-01-26] MEDS ORDERED: SENNOSIDES-DOCUSATE SODIUM 1 EACH TAB PO ONE (23:00)
[2018-01-26] MEDS ORDERED: ATORVASTATIN 20 MG TAB ONE (23:00)
[2018-01-27 05:38] VITALS: TEMP 98.2
[2018-01-27] MEDS: hydrOXYzine PAMOATE 25 MG CAP PO PRN (06:28)
[2018-01-27] MEDS: HYDROcodone/APAP 7.5-325MG 1 EACH TAB PO PRN ×2 (06:28→14:23)
[2018-01-27 07:22] LABS: Glucose,Whole Blood 146 mg/dL (75-99)
[2018-01-27] MEDS: SYMBICORT 160-4.5 MCG INHALER INHALATION SCH (08:25)
[2018-01-27] MEDS: metFORMIN 500 MG TAB PO SCH (09:20)
[2018-01-27] MEDS: FAMOTIDINE 20 MG TAB PO SCH (09:20)
[2018-01-27] MEDS: ENOXAPARIN 30 MG/0.3 ML SYRINGE SQ SCH ×2 (09:21→10:11)
[2018-01-27] MEDS: buPROPion XL 300 MG TAB.ER.24H PO SCH (09:21)
[2018-01-27] MEDS: ASPIRIN 325 MG TAB PO SCH ×3 (09:21→11:11)
[2018-01-27] MEDS: LINAGLIPTIN 5 MG TABLET PO SCH (09:22)
[2018-01-27] MEDS: METOPROLOL SUCCINATE (ER) 25 MG TAB.ER.24H PO SCH (09:22)
[2018-01-27] MEDS: GABAPENTIN 400 MG CAP PO SCH ×2 (09:22→10:12)
[2018-01-27] MEDS: MELOXICAM 7.5 MG TAB PO SCH (09:22)
[2018-01-27] MEDS: traMADol 50 MG TAB PO SCH ×3 (09:37→13:16)
[2018-01-27] MEDS: LACTATED RINGERS 1,000 ML IV SCH (10:10)
[2018-01-27] MEDS: ATORVASTATIN 20 MG TAB PO SCH (10:11)
[2018-01-27] MEDS: INSULIN ASPART 100 UNIT/ML 1 ML 10 ML VIAL SQ SCH ×2 (10:11→10:12)
[2018-01-27] MEDS: SENNOSIDES-DOCUSATE SODIUM 1 EACH TAB PO SCH (10:12)
[2018-01-27 11:42] VITALS: BP 135/81; PULSE 87
--- NOTE | 2018-01-27 11:52 | P.PN ---
Subjective Progress Note Date: 01/27/18 Principal diagnosis: Status post left total knee arthroplasty Patient is seen today resting in her hospital bed, she appears comfortable. She denies any headaches, lightheadedness, chest pain or shortness of breath. Objective - Vital Signs Vital signs: Vital Signs Temp 98.2 F 01/27/18 08:01 Pulse 87 01/27/18 08:01 Resp 16 01/27/18 08:01 BP 135/81 01/27/18 08:01 Pulse Ox 92 L 01/27/18 08:01 Intake & Output 01/26/18 01/27/18 01/27/18 18:59 06:59 18:59 Intake Total 200 580 Balance 200 580 Intake: Oral 200 580 Other: Voiding Method Toilet # Voids 2 - Exam Left lower extremity: Incision is clean, dry, and intact. [place] are all in good position. There is minimal soft tissue swelling and ecchymosis surrounding the medial and lateral aspects of the incision. Calf is soft, no tenderness with palpation. Plantar flexion, dorsiflexion, EHL, FHL are intact. Sensory exam to light touch throughout the extremity is intact, dorsal pedis pulses 2+. - Labs CBC & Chem 7: 01/26/18 06:59 Labs: Abnormal Lab Results - Last 24 Hours (Table) 01/26/18 01/26/18 01/26/18 Range/Units 06:59 16:47 20:19 POC Glucose (mg/dL) 149 H 193 H (75-99) mg/dL Hemoglobin A1c 7.7 H (4.0-6.0) % 01/27/18 Range/Units 07:20 POC Glucose (mg/dL) 146 H (75-99) mg/dL Hemoglobin A1c (4.0-6.0) % Assessment and Plan Plan: Assessment: 1. Postop day #2 status post left total knee arthroplasty Plan: Pain control, continue use of oral medication GI and DVT prophylaxis, we'll discharge home on aspirin 325 mg twice a day Wound care instructions were discussed, including icing and elevating techniques Daily dressing changes Medical recommendations Discharge planning: Discharged home today Time with Patient: Less than 30
--- NOTE | 2018-01-27 11:56 | P.DS ---
Providers Date of admission: 01/25/18 08:07 Expected date of discharge: 01/27/18 Attending physician: Jak Rose Consults: 01/25/18 12:23 Consult Physician Routine Consulting Provider: Suze Paula Consult Reason/Comments: Medical management Do you want consulting provider notified?: Yes Primary care physician: Verna Jason Hospital Course: Date of admission: 01/25/2018 Date of discharge: 01/27/2018 Admission diagnosis: Status post left total knee arthroplasty Discharge diagnosis: Same Attending physician: Dr. Rose Surgical procedures: Left total knee arthroplasty Brief history: Patient is a 62-year-old female with a history of progressive primary left knee osteoarthritis. At this point patient has failed conservative treatment measures and has opted to proceed with a elective left total knee arthroplasty. Hospital course: Details of patient's surgery can be found in operative report. Patient tolerated the procedure well and was subsequently transported to orthopedic floor. Patient's orthopeidc and medical care was provided daily. Patient had daily laboratory tests performed for evaluation of overall blood counts. Patient had daily physical therapy to include strengthening range of motion as well as education with walker ambulation. Patient had daily CPM usage as part of their physical therapy program. Patient was treated with Lovenox for their postoperative DVT prophylaxis during their inpatient stay. Patient was noted to have a relatively uneventful postoperative course. Patient reported satisfactory pain control with oral pain medications by postoperative day 0. Patient showed satisfactory progress with physical therapy. Patient moved steadily through the program and had no difficulty meeting the goals by postoperative day 2. Given patient's otherwise satisfactory course and having met physical therapy goals, plan is to discharge patient home on postoperative day 2. Discharge condition/disposition: Patient will be discharged home in stable condition. Discharge medications: Instructions are given on resumption of patient's normal daily medications per primary care recommendation, in addition patient will be prescribed Pinewood 7.5 mg/325 mg, Colace 100 mg, aspirin 325 mg. Discharge instructions: 1. Wound care and infection precautions, keep incision dry and covered while showering, no lotions, creams, moisturizers. No soaking, tubs, pools, hottubs. Do not scrub over the incision. 2. Weight-bear as tolerated with walker / cane until follow-up. 3. Ice and elevate when necessary. Do not exceed 20 minutes per hour with ice pack. 4. Utilize compression sleeve until seen at first follow up appointment. 5. Visiting nursing care. 6. Home physical therapy including home CPM]. 7. Pain meds and anticoagulants per prescription. 8. Pain medication has potential to cause constipation. Increase oral fluid and fiber intake. Contact primary care provider if you have not had a bowel movement within 48 hours after discharge 9. No anti-inflammatory medication until discussed at first post operative visit, this including Motrin, Aleve, Mobic, Diclofenac. 10. Follow up in office at 2 weeks postop with Jose Bahena PA-C 11. Follow up with your primary care doctor 7-10 days after discharge. 12. Contact [facility] with any questions, . Procedures: Left total knee arthroplasty Patient Condition at Discharge: Good Plan - Discharge Summary Discharge Rx Participant: Yes New Discharge Prescriptions: New Aspirin 325 mg PO BID #60 tab Docusate [Colace] 100 mg PO DAILY #30 capsule HYDROcodone/APAP 7.5-325MG [P[place]wood 7.5] 1 - 2 each PO Q6HR PRN #60 tab PRN Reason: Pain No Action Budesonide/Formoterol Fumarate [Symbicort 160-4.5 Mcg Inhaler] 2 puff INHALATION RT-DAILY buPROPion HCL [Wellbutrin XL] 300 mg PO DAILY Simvastatin [Zocor] 40 mg PO HS Montelukast [Singulair] 10 mg PO HS Gabapentin 800 mg PO TID Losartan Potassium [Cozaar] 25 mg PO DAILY Albuterol Inhaler [Ventolin Hfa Inhaler] 1 - 2 puff INHALATION RT-DAILY PRN PRN Reason: Shortness Of Breath Metoprolol Succinate [Toprol XL] 25 mg PO DAILY sitaGLIPtin [Januvia] 100 mg PO DAILY diphenhydrAMINE [Benadryl] 25 mg PO DAILY traMADol HCL [Ultram] 50 mg PO Q6HR PRN #1 tab PRN Reason: Pain metFORMIN HCL [Glucophage] 1,000 mg PO BID Omeprazole Magnesium [PriLOSEC OTC] 20 mg PO DAILY Meloxicam [Mobic] 7.5 mg PO DAILY Discharge Medication List Albuterol Inhaler [Ventolin Hfa Inhaler] 1 - 2 puff INHALATION RT-DAILY PRN 12/25 [History] Budesonide/Formoterol Fumarate [Symbicort 160-4.5 Mcg Inhaler] 2 puff INHALATION RT-DAILY 05/14/16 [History] Gabapentin 800 mg PO TID 05/14/16 [History] Losartan Potassium [Cozaar] 25 mg PO DAILY 05/14/16 [History] Montelukast [Singulair] 10 mg PO HS 05/14/16 [History] Simvastatin [Zocor] 40 mg PO HS 05/14/16 [History] buPROPion HCL [Wellbutrin XL] 300 mg PO DAILY 05/14/16 [History] Metoprolol Succinate [Toprol XL] 25 mg PO DAILY 01/15/17 [History] sitaGLIPtin [Januvia] 100 mg PO DAILY 01/15/17 [History] diphenhydrAMINE [Benadryl] 25 mg PO DAILY 01/20/17 [History] traMADol HCL [Ultram] 50 mg PO Q6HR PRN #1 tab 03/31/17 [Rx] Meloxicam [Mobic] 7.5 mg PO DAILY 01/13/18 [History] Omeprazole Magnesium [PriLOSEC OTC] 20 mg PO DAILY 01/13/18 [History] metFORMIN HCL [Glucophage] 1,000 mg PO BID 01/13/18 [History] Aspirin 325 mg PO BID #60 tab 01/27/18 [Rx] Docusate [Colace] 100 mg PO DAILY #30 capsule 01/27/18 [Rx] HYDROcodone/APAP 7.5-325MG [P[place]wood 7.5] 1 - 2 each PO Q6HR PRN #60 tab 01/27/18 [ Rx] Follow up Appointment(s)/Referral(s): [facility], [NON-STAFF] - Alfredo Bahena PAC [PHYSICIAN [employer]ER] - 2 Weeks Activity/Diet/Wound Care/Special Instructions: Orthopedic Discharge Instructions: 1. Wound care and infection precautions, keep incision dry and covered while showering, no lotions, creams, moisturizers. No soaking, pools, hot tubs. Do not scrub over incision. 2. Weight-bear as tolerated with walker / cane until follow-up. 3. Ice and elevate when necessary. Do not exceed 20 minutes per hour with ice pack. 4. Utilize compression sleeve until seen at first follow up appointment. 5. Visiting nursing care. 6. Home physical therapy including home CPM. 7. Pain meds and anticoagulants per prescription. 8. Pain medication has potential to cause constipation. Increase oral fluid and fiber intake. Contact primary care provider if you have not had a bowel movement within 48 hours after discharge. 9. No anti-inflammatory medication until discussed at first post operative visit, this including Motrin, Aleve, Mobic, Diclofenac. 10. Follow up in office at 2 weeks postop with Jose Bahena PA-C 11. Follow up with your primary care doctor 7-10 days after discharge. 12. Contact [facility] with any questions, . Discharge Disposition: HOME WITH HOME HEALTH SERVICES
[2018-01-27 12:07] LABS: Glucose,Whole Blood 148 mg/dL (75-99)
--- NOTE | 2018-01-27 20:09 | PN ---
PROGRESS NOTE DATE OF SERVICE: 01/27/2018 This 62-year-old woman who was admitted with left total knee arthroplasty is improving significantly. No chest pain. No palpitations. No fever. EXAM: Alert, and oriented x3. Pulse is 91, blood pressure 130/70, respiration 16, temperature 98.2, pulse ox 98% on room air. HEENT: Conjunctivae normal. NECK: No jugular venous distention. CARDIOVASCULAR: S1, S2 RESPIRATORY: Breath sounds diminished in the bases. No rhonchi, no crackles. ABDOMEN: Soft, nontender. LEGS: Status post left knee arthroplasty. NERVOUS SYSTEM: No focal deficits. LABS: Accu-Cheks 193, 140. ASSESSMENT: 1. Status post left total knee arthroplasty. 2. Diabetes mellitus type 2. 3. Hyperlipidemia. 4. Asthma. 5. Fibromyalgia. 6. Hypertension. RECOMMENDATIONS AND DISCUSSION: I recommend to continue current management and symptomatic treatment. Resume the home medications. Closely follow with primary physician in outpatient setting. Otherwise DVT prophylaxis. Further recommendations to follow. MMODL / IJN: [id number] /
== END 2018-01-27 14:40 | disposition home health service (06) | DRG 470 ==
LOC: 2ORMAIN 08:07 → 3SUR 12:11
PROVIDERS: ADMIT Orthopaedic Surgery; ATTEND Orthopaedic Surgery
PROC: 0SRD0J9 Replacement of Left Knee Joint with Synthetic Substitute, Cemented, Open Approach (ICD-10-PCS; principal; 2018-01-25 10:10)
DX: M17.12 Unilateral primary osteoarthritis, left knee (principal); E11.9 Type 2 diabetes mellitus without complications; E78.5 Hyperlipidemia, unspecified; I10 Essential (primary) hypertension; J45.909 Unspecified asthma, uncomplicated; M79.7 Fibromyalgia; F32.9 Major depressive disorder, single episode, unspecified; K58.9 Irritable bowel syndrome, unspecified; Z86.69 Personal history of other diseases of the nervous system and sense organs; Z86.79 Personal history of other diseases of the circulatory system; Z79.84 Long term (current) use of oral hypoglycemic drugs; Z90.49 Acquired absence of other specified parts of digestive tract; Z90.710 Acquired absence of both cervix and uterus; Z79.899 Other long term (current) drug therapy; Z91.041 Radiographic dye allergy status; Z91.048 Other nonmedicinal substance allergy status; Z87.891 Personal history of nicotine dependence; Z82.49 Family history of ischemic heart disease and other diseases of the circulatory system; Z83.3 Family history of diabetes mellitus; Z82.0 Family history of epilepsy and other diseases of the nervous system; Z79.51 Long term (current) use of inhaled steroids; Z79.82 Long term (current) use of aspirin
CPT/HCPCS: 83036; 85025; 88300; 94640

== ENCOUNTER → 2019-05-18 | Outpatient (CLI) | payer OTHER ==
--- NOTE | 2019-05-18 09:53 | BD ---
EXAMINATION TYPE: Axial Bone Density DATE OF EXAM: 05/18/2019 COMPARISON: 2016 CLINICAL HISTORY: Z 13.820 Height: 5 FT 3 IN Weight: 193 FRAX RISK QUESTIONS: Secondary Osteoporosis: 3. Menopause before 45: YES RISK FACTORS HISTORY OF: Active: A BIT Postmenopausal woman: TOTAL HYST AGE 35 Take estrogen and/or progesterone medications: TOOK HRT FROM [age] NO LONGER MEDICATIONS: Additional Medications: SINGULAIR, TRAMADOL,METFORMIN, GABAPENTIN, CHOLESTEROL MEDS, BLOOD PRESSURE MEDS, OMEPRAZOLE Additional History: FIBROMYALGIA EXAM MEASUREMENTS: Bone mineral densitometry was performed using the [employer] System. Bone mineral density as measured about the Lumbar spine is: ----- L1-L4(G/cm2): 1.176 T Score Values are as follows: ----- L2: -0.7 ----- L3: 0.3 ----- L4: 1.6 ----- L1-L4: 0.0 Bone mineral density has: INCREASED 2.0 % since study of: 2016 Bone mineral density about the R hip (g/cm2): 0.710 Bone mineral density about the L hip (g/cm2): 0.803 T Score values are as follows: -----R Neck: -2.4 -----L Neck: -1.7 -----R Total: -2.1 -----L Total: -1.3 Bone mineral density has: DECREASED -7.7 % since study of: 2016 IMPRESSION: Osteopenia (T Score between -2.5 and -1). There is slightly increased risk of fracture and the patient may be considered for treatment. Re-Screen 2-5 years. NOTE: T-SCORE=SD OF THE YOUNG ADULT MEAN.
== END ==
LOC: RADBDWWP 07:07
PROVIDERS: ATTEND Family Medicine
DX: M85.80 Other specified disorders of bone density and structure, unspecified site (principal); M15.0 Primary generalized (osteo)arthritis
CPT/HCPCS: 77080

== ENCOUNTER → 2020-03-26 | Outpatient (CLI) | payer MEDICARE ==
--- NOTE | 2020-03-27 12:04 | MM ---
Reason for exam: screening (asymptomatic). Last mammogram was performed 1 year and 3 months ago. History: Patient is postmenopausal. Benign excisional biopsy of the left breast, 1989. Took estrogen for 4 years beginning at age 34. Physical Findings: A clinical breast exam by your physician is recommended on an annual basis and results should be correlated with mammographic findings. MG Screening Mammo w CAD Bilateral CC and MLO view(s) were taken. Prior study comparison: January 03, 2019, bilateral MG screening mammo w CAD. November 25, 2017, bilateral MG screening mammo w CAD. The breast tissue is heterogeneously dense. This may lower the sensitivity of mammography. Stable benign calcifications. There is no discrete abnormality. No significant changes when compared with prior studies. ASSESSMENT: Benign, BI-RAD 2 RECOMMENDATION: Routine screening mammogram of both breasts in 1 year.
== END | disposition home or self-care (01) ==
LOC: RADMAMWWP 08:34
PROVIDERS: ATTEND Family Medicine
DX: Z12.31 Encounter for screening mammogram for malignant neoplasm of breast (principal)
CPT/HCPCS: 77067

== ENCOUNTER → 2021-05-09 | Outpatient (CLI) | payer MEDICARE ==
--- NOTE | 2021-05-13 08:50 | MM ---
Reason for exam: screening (asymptomatic). Last mammogram was performed 1 year and 1 month ago. History: Patient is postmenopausal. Benign excisional biopsy of the left breast, 1989. Took estrogen for 4 years beginning at age 34. Physical Findings: A clinical breast exam by your physician is recommended on an annual basis and results should be correlated with mammographic findings. MG Screening Mammo w CAD Bilateral CC and MLO view(s) were taken. Prior study comparison: March 26, 2020, bilateral MG screening mammo w CAD. January 03, 2019, bilateral MG screening mammo w CAD. The breast tissue is heterogeneously dense. This may lower the sensitivity of mammography. No significant changes when compared with prior studies. ASSESSMENT: Negative, BI-RAD 1 RECOMMENDATION: Routine screening mammogram of both breasts in 1 year.
== END | disposition home or self-care (01) ==
LOC: RADMAMWWP 11:08
PROVIDERS: ATTEND Family Medicine
DX: Z12.31 Encounter for screening mammogram for malignant neoplasm of breast (principal); Z78.0 Asymptomatic menopausal state; Z79.818 Long term (current) use of other agents affecting estrogen receptors and estrogen levels
CPT/HCPCS: 77067

== ENCOUNTER → 2022-08-05 | Outpatient (CLI) | payer MEDICARE, OTHER ==
--- NOTE | 2022-08-06 16:04 | BD ---
EXAMINATION TYPE: Axial Bone Density DATE OF EXAM: 08/05/2022 COMPARISON: 05/18/2019 CLINICAL HISTORY: 67 years year old Female. ICD-10 CODE: Z78.0 POST MENOPAUSE Height: 63 Weight: 187 FRAX RISK QUESTIONS: Secondary Osteoporosis: 3. Menopause before 45: YES TOTAL HYST 34 RISK FACTORS HISTORY OF: Active: YES Diet low in dairy products/other sources of calcium: YES Postmenopausal woman: YES Take estrogen and/or progesterone medications: NOT NOW How lon YRS Frequent falls: YES DUE TO FOOT MEDICATIONS: Additional Medications: YES HBP,INSULIN, SINGULAR, TRAMADOL,ACID REFLUX, DEPRESSION, NEURONTIN EXAM MEASUREMENTS: Bone mineral densitometry was performed using the [employer] System. Bone mineral density as measured about the Lumbar spine is: ----- L1-L4(G/cm2): 1.094 T Score Values are as follows: ----- L1: -1.9 ----- L2: -1.1 ----- L3: -0.3 ----- L4: 0.0 ----- L1-L4: -0.7 Bone mineral density has: Increased -8.2% since study of: 05/18/2019 Bone mineral density about the R hip (g/cm2): .694 Bone mineral density about the L hip (g/cm2): .686 T Score values are as follows: -----R Neck: -2.5 -----L Neck: -2.5 -----R Total: -2.3 -----L Total: -1.9 Bone mineral density has: Decreased -5.9% since study of: 05/18/2019 FRAX%s: The graph provided illustrates a 13% chance for a major osteoporotic fx and a 2.8% chance for the hips probability for fx in 10 years time. IMPRESSION: Osteopenia (T Score between -2.5 and -1). There is slightly increased risk of fracture and the patient may be considered for treatment. Re-Screen 2-5 years. NOTE: T-SCORE=SD OF THE YOUNG ADULT MEAN.
--- NOTE | 2022-08-06 16:49 | MM ---
Reason for Exam: Screening (asymptomatic). Last mammogram was performed 1 year(s) and 3 month(s) ago. Patient History: Menarche at age 12. First Full-Term at age 23. Left ovary removed at age 35. Right ovary removed at age 35. Hysterectomy at age 34. Postmenopausal. Estrogen for 4 years from age 34 until age 38. 1990, Benign Excisional Biopsy on the left side. Maternal cousin had breast cancer, age 60. Risk Values: Evonne 5 year model risk: 1.9%. NCI Lifetime model risk: 7.0%. Prior Study Comparison: 01/03/2019 Bilateral Screening Mammogram, [facility]. 03/26/2020 Bilateral Screening Mammogram, [facility]. 05/09/2021 Bilateral Screening Mammogram, [facility]. Tissue Density: The breast tissue is heterogeneously dense. This may lower the sensitivity of mammography. Findings: Analyzed By CAD. There are symmetrical and stable. Benign vascular calcifications present. There is a benign round calcification within the right breast. No suspicious groups of microcalcifications, spiculated or lobular masses, architectural distortion or other secondary signs of malignancy are mammographically apparent. Overall Assessment: Benign, BI-RAD 2 Management: Screening Mammogram of both breasts in 1 year. A negative mammogram report should not preclude additional follow up of suspicious palpable abnormalities. Patient should continue monthly self breast exam. A clinical breast exam by your physician is recommended on an annual basis and results should be correlated with mammographic findings. Electronically signed and approved by: Todd Rodriguez D.O. Radiologis
== END | disposition home or self-care (01) ==
LOC: RADMAMWWP 14:25
PROVIDERS: ATTEND Family Medicine
DX: Z12.31 Encounter for screening mammogram for malignant neoplasm of breast (principal); Z78.0 Asymptomatic menopausal state
CPT/HCPCS: 77067; 77080